=== PATIENT | female | born 1970 | race Asian ===

== ENCOUNTER → 2016-12-02 | Outpatient (CLI) | payer OTHER ==
[~2016-12-02] MED LIST: ALLE60TA PO; DOCU1CAP39 PO; IBUP800T23 PO; MULTTAB67 PO; OXYC1TAB63 PO; VITACAP7 PO
[2016-12-02 11:47] LABS: AUTOMATED NEUTROPHIL # 4.8 TH/MM3 (1.8-7.7); BASOPHIL # 0.1 TH/MM3 (0-0.2); BASOPHIL % 1.2 % (0.0-2.0); EOSINOPHIL # 0.2 TH/MM3 (0-0.4); HEMATOCRIT 39.5 % (35.0-46.0); HEMO FLAGS DIFF FINAL; LYMPH % 26.4 % (9.0-44.0); MEAN CELL VOLUME 66.2 FL (80.0-100.0); MEAN CORPUSCULAR HEMOGLOBIN 21.3 PG (27.0-34.0); MEAN CORPUSCULAR HGB CONC 32.1 % (32.0-36.0); MONO % 7.6 % (0.0-8.0); NEUT % 62.8 % (16.0-70.0); PLATELET COUNT 261 TH/MM3 (150-450); RED BLOOD COUNT 5.97 MIL/MM3 (4.00-5.30); RED CELL DISTRIBUTION WIDTH 16.5 % (11.6-17.2); WHITE BLOOD COUNT 7.7 TH/MM3 (4.0-11.0)
[2016-12-02 12:10] LABS: ANION GAP 7 MEQ/L (5-15); BICARBONATE 27.1 MEQ/L (21.0-32.0); BLOOD UREA NITROGEN 14 MG/DL (7-18); CHLORIDE 105 MEQ/L (98-107); GLOMERULAR FILTRATION RATE 64 ML/MIN (>89); GLUCOSE,FASTING 81 MG/DL (74-99); POTASSIUM 4.3 MEQ/L (3.5-5.1); SODIUM (NA) 139 MEQ/L (136-145)
[2016-12-02 12:15] LABS: BLOOD, URINE NEG (NEG); GLUCOSE,URINE NEG (NEG); KETONE, URINE NEG (NEG); MUCUS URINE FEW /lpf (OCC); NITRITE,URINE NEG (NEG); PH, URINE 6.5 (5.0-8.5); SQUAMOUS EPITHELIAL CELL URINE 1 /hpf (0-5); URINE COLOR LIGHT-YELLOW (YELLW/STRAW)
[2016-12-02 12:22] LABS: BHCG SCREEN QUALITATIVE LESS THAN 1 MIU/ML (0-5)
== END ==
LOC: CPRE 10:18
PROVIDERS: ATTEND Obstetrics & Gynecology
DX: Z01.812 Encounter for preprocedural laboratory examination (principal); D25.9 Leiomyoma of uterus, unspecified
CPT/HCPCS: 36415; 80048; 81001; 84703; 85025; 86850; 86900; 86901

== ENCOUNTER 2016-12-03 06:03 | Observation (INO) | payer OTHER ==
[~2016-12-03] VITALS: Ht 147.3 cm; Wt 63.2 kg
[2016-12-03 04:15] VITALS: BP 98/59; PULSE 54; RESP 14; TEMP 98
[~2016-12-03 06:03] MED LIST changes: -DOCU1CAP39 PO; -IBUP800T23 PO; -OXYC1TAB63 PO
[2016-12-03] MEDS ORDERED: INSULIN HUMAN REGULAR 1,000 UNITS/10 ML VIAL SQ PRN (06:30)
[2016-12-03] MEDS ORDERED: GENTAMICIN/SOD CHL 80 MG/100 ML IV PRN (06:30)
[2016-12-03] MEDS ORDERED: LACTATED RINGER'S 1000 ML IV PRN (06:30)
[2016-12-03] MEDS ORDERED: CHLORHEXIDINE GLUCONATE 2 % 1 PACK (2 CLOTHS) TOPICAL PRN (06:30)
[2016-12-03] MEDS ORDERED: SODIUM CHLORID 0.9% 500 ML IV PRN (06:30)
[2016-12-03] MEDS ORDERED: POVIDONE IODINE 5% (ANTISEPSIS KIT) 4 APPLICATIONS EACH NARE PRN (06:30)
[2016-12-03] MEDS ORDERED: CLINDAMYCIN 600 MG/NS 100 ML IV PRN ×2 (06:30)
[2016-12-03] MEDS ORDERED: METOPROLOL TARTRATE 25 MG TAB PO PRN (06:30)
[2016-12-03 06:42] VITALS: BP 118/77; PULSE 59; RESP 16; TEMP 98.1; O2SAT 99
[2016-12-03] MEDS ORDERED: SODIUM CHLORIDE 0.9% INJ 100 ML ONE (06:58)
[2016-12-03] MEDS ORDERED: BUPIVACAINE/EPINEPHRINE 0.25% 50 ML VIAL ONE (07:44)
[2016-12-03] MEDS ORDERED: ESTROGENS CONJUGATED VAG CREA 15 APPL/30 GM TUBE ONE (07:44)
[2016-12-03] MEDS ORDERED: ONDANSETRON HCL 4 MG/2 ML VIAL IVP PRN (10:45)
[2016-12-03] MEDS ORDERED: HYDROmorphone HCL PCA 6 MG/30 ML IV SCH (10:45)
[2016-12-03] MEDS ORDERED: SODIUM CHLORIDE 0.9% FLUSH 10 ML FLUSH IV FLUSH PRN (10:45)
[2016-12-03] MEDS ORDERED: ZOLPIDEM TARTRATE 5 MG TAB PO PRN (10:45)
[2016-12-03] MEDS ORDERED: NALOXONE HCL 0.4 MG/ML AMP IV PRN (10:45)
[2016-12-03] MEDS ORDERED: diphenhydrAMINE HCL 50 MG/ML VIAL IV PRN (10:45)
[2016-12-03] MEDS: LACTATED RINGER'S 1000 ML INJ 1,000 ML IV SCH ×2 (11:25→21:53)
[2016-12-03] MEDS ORDERED: MIDAZOLAM HCL 2 MG/2 ML VIAL ONE (11:30)
[2016-12-03] MEDS ORDERED: fentaNYL CITRATE 250 MCG/5 ML AMP ONE (11:30)
[2016-12-03] MEDS ORDERED: ePHEDrine/NS 25 MG/5 ML SYR IV ONE (12:00)
[2016-12-03] MEDS ORDERED: KETOROLAC TROMETHAMINE 60 MG/2 ML (IM) VIAL IM ONE (12:00)
[2016-12-03] MEDS ORDERED: DO NOT ADM ANY ANTICOAGULANT DRUGS PRN (12:00)
[2016-12-03] MEDS ORDERED: ONDANSETRON HCL 4 MG/2 ML VIAL IV PUSH ONE (12:00)
[2016-12-03] MEDS ORDERED: NEOSTIGMINE 3 MG/3 ML SYR IV ONE (12:00)
[2016-12-03] MEDS: DOCUSATE SODIUM 100 MG CAP PO SCH ×2 (12:00→21:50)
[2016-12-03] MEDS ORDERED: PROPOFOL 200 MG/20 ML AMP IV ONE (12:00)
[2016-12-03] MEDS ORDERED: LACTATED RINGER'S 1000 ML INJ 1,000 ML IV ONE (12:00)
[2016-12-03 12:10] VITALS: BP 116/68; PULSE 57; RESP 20; TEMP 97.9
[2016-12-03 16:30] VITALS: BP 108/57; PULSE 63; RESP 18; TEMP 98.7; O2SAT 99
[2016-12-03] MEDS: PCA - TOTAL MG DILAUDID DELIVERED PER SHIFT OTHER SCH ×2 (18:10→22:00)
[2016-12-03 20:45] VITALS: BP 93/47; PULSE 69; RESP 14; TEMP 97.9
[2016-12-03] MEDS ORDERED: SODIUM CHLORIDE 0.9% FLUSH 10 ML FLUSH IV FLUSH SCH (21:00)
[2016-12-04 00:57] VITALS: BP 94/59; PULSE 63; RESP 14; TEMP 98.3
[2016-12-04 04:00] VITALS: BP 98/59; PULSE 54; RESP 14; TEMP 98
[2016-12-04] MEDS: PCA - TOTAL MG DILAUDID DELIVERED PER SHIFT OTHER SCH (06:45)
[2016-12-04 06:56] LABS: AUTOMATED NEUTROPHIL # 10.6 TH/MM3 (1.8-7.7); BASOPHIL % 0.3 % (0.0-2.0); EOSINOPHIL % 0.1 % (0.0-4.0); HEMATOCRIT 31.4 % (35.0-46.0); HEMO FLAGS DIFF FINAL; LYMPH % 13.8 % (9.0-44.0); LYMPHOCYTE # 1.8 TH/MM3 (1.0-4.8); MEAN CELL VOLUME 66.8 FL (80.0-100.0); MEAN CORPUSCULAR HEMOGLOBIN 20.6 PG (27.0-34.0); MEAN CORPUSCULAR HGB CONC 30.9 % (32.0-36.0); MONO % 5.7 % (0.0-8.0); NEUT % 80.1 % (16.0-70.0); PLATELET COUNT 224 TH/MM3 (150-450); RED CELL DISTRIBUTION WIDTH 16.8 % (11.6-17.2); WHITE BLOOD COUNT 13.2 TH/MM3 (4.0-11.0)
[2016-12-04] MEDS ORDERED: oxyCODONE/ACETAMINOPHEN 5 MG/325 MG TAB PO PRN ×2 (07:00)
[2016-12-04] MEDS: LACTATED RINGER'S 1000 ML INJ 1,000 ML IV SCH (07:18)
--- NOTE | 2016-12-04 08:32 | HHI.PR ---
Subjective Remarks Doing well, pain is well controlled, hungry, tray just arrived Objective Vital Signs Vital Signs Date Time Temp Pulse Resp B/P Pulse Ox O2 Delivery O2 Flow Rate FiO2 12/04/16 06:45 14 12/04/16 04:00 98.0 54 14 98/59 12/04/16 00:57 98.3 63 14 94/59 12/03/16 22:00 14 12/03/16 20:45 97.9 69 14 93/47 12/03/16 18:10 16 12/03/16 16:30 98.7 63 18 108/57 99 12/03/16 12:10 97.9 57 20 116/68 12/03/16 11:45 64 16 118/69 99 Room Air 12/03/16 11:38 16 12/03/16 11:30 68 16 114/66 99 Room Air 12/03/16 11:15 72 16 120/62 98 Nasal Cannula 3 12/03/16 11:03 97.7 74 16 120/67 100 Nasal Cannula 3 I/O 12/03/16 12/03/16 12/03/16 12/04/16 12/04/16 12/04/16 06:59 14:59 22:59 06:59 14:59 22:59 Intake Total 1935 ml Output Total 125 ml 750 ml 1500 ml Balance -125 ml -750 ml 435 ml Intake IV Total 1935 ml Output Urine Total 125 ml 750 ml 1500 ml Result Diagram: 12/04/16 0610 12/04/16 0610 Objective Remarks Chest is clear, regular rate and rhythm. Abdomen is soft and non-distended. Incisions are clean and dry. Ext no CCE. A/P Assessment and Plan Post Op Day 1 Doing well Home today and return to office in two weeks. Perla Li MD Dec 04, 2016 08:32
[2016-12-04] MEDS ORDERED: DOCU1CAP39 PO (08:35)
[2016-12-04] MEDS ORDERED: OXYC1TAB63 PO (08:35)
[2016-12-04] MEDS ORDERED: IBUP800T23 PO (08:35)
--- NOTE | 2016-12-04 08:35 | HHI.DCPOC ---
Discharge Care Plan Your Health Problems Are: Pelvic pain Report Symptoms to Your Doctor -Temperature above 100.5 degrees -Redness, of incision or excessive or foul smelling drainage -Unusual pain or calf pain -Increased vaginal bleeding -Painful or difficulty urinating -Feelings of extreme sadness or anxiety after 2 weeks Goals to Promote Your Health * To prevent worsening of your condition and complications * To maintain your health at the optimal level Directions to Meet Your Goals Take your medications as prescribed Follow your dietary instruction Follow activity as directed Ensure plenty of rest for recovery Drink fluids for hydration Keep your appointments as scheduled Take your immunizations and boosters as scheduled If your symptoms worsen call your PCP, if no PCP go to Urgent Care Center or Emergency Room Smoking is Dangerous to Your Health. Avoid second hand smoke Call the 24-hour crisis hotline for domestic abuse at Perla Li MD Dec 04, 2016 08:35
[2016-12-04 09:00] VITALS: BP 96/61; PULSE 55; RESP 15; TEMP 98
[2016-12-04] MEDS: DOCUSATE SODIUM 100 MG CAP PO SCH (09:02)
[2016-12-04 14:00] VITALS: BP 104/68; PULSE 65; RESP 15; TEMP 98.4
--- NOTE | 2016-12-05 10:17 | MP ---
cc: GUS STEPHENS DATE OF SURGERY: 12/03/2016 PREOPERATIVE DIAGNOSIS Fibroid uterus, menorrhagia. POSTOPERATIVE DIAGNOSIS Fibroid uterus, menorrhagia. PROCEDURE Examination under anesthesia, laparoscopic-assisted vaginal hysterectomy, bilateral salpingectomy, cystoscopy. SURGEON Dr. Stephens PRACTICAL NURSING INSTRUCTOR Edilia Rendon ANESTHESIA General endotracheal anesthesia, Dr. Pablo. FLUIDS 1200 cc crystalloid. ESTIMATED BLOOD LOSS 350 cc. URINE OUTPUT 325 cc clear yellow at the end of the procedure. FINDINGS The uterus was approximately 12-14 weeks in size with a large 6 cm fibroid in the anterior lower uterine segment extending into the left side of the broad ligament. Normal tubes and ovaries were noted. DETAILS OF PROCEDURE The patient was taken to the operating room where general anesthesia was found to be adequate. She was then prepped and draped in the normal sterile fashion in the dorsal lithotomy position. A Hernandez catheter was inserted into the urinary bladder using sterile technique. A weighted speculum was placed in the vagina. A single-tooth tenaculum was applied to the anterior lip of the cervix. The tenaculum was replaced with a single suture. The uterus was sounded and gently dilated to accommodate a medium VCare uterine manipulator. The balloon was inflated. The cups were positioned. The speculum was removed. The gloves were changed and attention was turned to the abdominal portion of the procedure. A 5 mm skin incision was made just above the umbilicus and a 5 mm trocar and camera were inserted into the abdominal cavity under direct visualization. The abdomen was insufflated with approximately 3.5 liters of CO2 gas. Two additional 5 mm trocars were placed under direct visualization in the right and left lower quadrants. The uterus was elevated using the VCare uterine manipulator. The left round ligament was somewhat obscured by the left-sided anterior fibroid extending into the broad ligament. The left round ligament was transected with the Harmonic scalpel and the bladder flap was created from the left side using the Harmonic scalpel. The right round ligament was transected with the Harmonic scalpel and the bladder flap was created from the right side using the Harmonic scalpel. The bladder was gently dissected off the anterior surface of the fibroid and the uterus. The left fallopian tube was then transected from the left ovary using the Harmonic scalpel. The remaining cardinal ligaments and uterine artery on the left side was transected down to the level of the cervix using the Harmonic scalpel. The right fallopian tube was then transected from the broad ligament using the Harmonic scalpel. The utero-ovarian ligament on the right side was transected with the Harmonic scalpel and the remaining cardinal ligaments and uterine artery on the right side were transected with the Harmonic scalpel down to the level of the cervix. The [employer] uterine manipulator was then used as a guide to incise the vagina below the cervix using the Harmonic scalpel and this incision was extended circumferentially. At this time it was noted the uterus was quite wide to deliver through the vagina so the decision was made to perform a myomectomy the 6 cm fibroid from the uterus using the Harmonic scalpel. The uterus, cervix and fallopian tubes were delivered through the vagina followed by the 6 cm fibroid. Hemostasis was noted at this time from all pedicles. The vagina was closed from below using a running locking suture of 0 Vicryl. Hemostasis was assured. The bladder was then filled with approximately 300 cc of saline using the Hernandez catheter. The Hernandez catheter was removed. Cystoscopy was performed and urine was noted to be effluxing from both of the ureteral meatuses. The cystoscope was removed. The Hernandez catheter was replaced. A second-look laparoscopy revealed that there was again hemostasis from all pedicles. The gas was allowed to escape. The trocars were removed. The skin incisions were closed with 4-0 Monocryl. The sponge, lap, needle and instrument counts were correct. Pathology was uterus, cervix, fibroid and bilateral fallopian tubes. The patient was transferred to the recovery room in stable condition. MD SELINA Trejo/CHELI /11:05 AM /10:01 AM [id number]
== END 2016-12-04 14:42 | disposition home or self-care (01) ==
LOC: HSDC 06:03 → EDUNIT# 08:00 → HSDI 10:48 → H1EA 11:54
PROVIDERS: ADMIT Obstetrics & Gynecology; ATTEND Obstetrics & Gynecology
PROC: 0UTC7ZZ Resection of Cervix, Via Natural or Artificial Opening (ICD-10-PCS; 2016-12-03)
PROC: 0UT7FZZ Resection of Bilateral Fallopian Tubes, Via Natural or Artificial Opening With Percutaneous Endoscopic Assistance (ICD-10-PCS; 2016-12-03)
PROC: 0UT9FZZ Resection of Uterus, Via Natural or Artificial Opening With Percutaneous Endoscopic Assistance (ICD-10-PCS; principal; 2016-12-03 08:09)
DX: D25.9 Leiomyoma of uterus, unspecified (principal); N92.0 Excessive and frequent menstruation with regular cycle
CPT/HCPCS: 00840; 58552; 82565; 85025; 88307; G0378; J1170; J1885; J2250; J2405; J2710; J3010; J7120